=== PATIENT | female | born 1930 | race Caucasian/White ===

== ENCOUNTER 2017-02-10 07:13 | Inpatient (IN) | payer MEDICARE, OTHER ==
[2017-02-10] VITALS (9 sets, daily range): BP systolic 113–185; BP diastolic 39–83
[~2017-02-10] VITALS: Ht 152.4 cm; Wt 80.0 kg
[~2017-02-10 07:13] MED LIST: ACETAMIN325 MG PO; ADLT ASA LOW81 MG PO; AMLODIPINE5 MG PO; APRESOLINE25 MG/TAB PO; ATORVASTATIN CA40 MG PO; AZITHROMYCIN500 MG OR; BILBERRY1000 MG PO; CADUET5 MG/40 MG OR; CALCIUM 600+D31 TAB PO; CEPACOL SORE TH1 LO1 MT; CEPHALEXIN500 MG OR; CLONIDINE0.1 MG PO; COLACE100 MG PO; DARVOCET-N 100100 MG OR; DETROL LA4 MG OR; DETROL LA4 MG PO; DEXILANT60 MG PO; DOLACET1 CAP PO; GABAPENTIN300 MG PO; GINKGO BILOB120 M1 PO; GLUCOS/CHOND1 TA1 PO; GLUCOVANCE5 MG/500 M OR; GLYB/METFOR1 PO; HYDRALAZINE25 MG PO; LANTUS SC; LANTUS100 MG/ML SC; LASIX 20 MG TAB20 MG PO; LEVOTHYROXIN100 MCG PO; LIPITOR40 MG PO; LOPRESSOR 550 MG/TAB PO; LORTAB 5 OR; METO100T50 PO; METOPROL TAR50 MG OR; MILK OF MAG30 ML/UDC PO; MONOPRIL40 MG PO; MULTI 501 PO; NEURONTIN100 MG OR; NEURONTIN100 MG PO; NEURONTIN300 MG PO; NEXIUM40 M1 PO; NIASPAN1000 ER OR; NIFEDIPINE60 MG PO; NITROSTAT0.4 MG PO; NORCO1 TA1 PO; NORVASC PO; OMEGA-3 FIS1 PO; OMEPRAZOLE20 MG OR; PLAVIX75 MG PO; PREDNISONE20 MG PO; ROSE PO; SYNTHROID112 MCG PO; SYNTHROID75 MCG OR; TOPROL XL100 MG PO; TORADOL OR; TRAVATAN Z0.004 % OU; TRIAM/HCTZ1 CAP OR; TUBERSOL5 MG/0.1 M ID; VANTIN100 MG PO; VICKS VAPORUB EX; VITAMIN B-COMPLEX PO; VITAMIN C PO; VITAMIN D35000 UNIT PO; ZITHROMAX250 MG PO; [UNRECOGNIZED DRUG - OTHER] OU
[2017-02-10] MEDS ORDERED: DYNACIN100 MG PO (07:38)
[2017-02-10] MEDS ORDERED: OXYBUTYNIN5 M1 PO (07:41)
[2017-02-10] MEDS ORDERED: VITAMIN D50000 UN1 PO (07:44)
[2017-02-10] MEDS ORDERED: DEXILANT60 MG PO (07:52)
[2017-02-10] MEDS ORDERED: LANTUS100 MG/ML SC (07:57)
[2017-02-10] MEDS ORDERED: LISINOPRIL20 MG PO (07:58)
[2017-02-10 08:29] LABS: HEMATOCRIT 25.9 % (37.0-47.0); HEMOGLOBIN 7.9 g/dl (12.0-16.0); IMMATURE GRANULOCYTES 1.6 % (0.0-1.0); MEAN CELL VOLUME 97.7 fL CALC (80.0-100.0); MEAN CORPUSCULAR HGB 29.8 pG CALC (26.0-32.0); MEAN CORPUSCULAR HGB CONC 30.5 g/L CALC (32.0-36.0); NEUT# 5.76 thou/uL (2.00-7.15); RED BLOOD COUNT 2.65 mill/uL (4.20-5.60); RED CELL DISTRI WIDTH 14.4 % (11.5-15.5)
[2017-02-10 08:39] LABS: URINE BILIRUBIN - DIPSTICK NEGATIVE (NEGATIVE); URINE BLOOD DIPSTICK TRACE-INTACT (NEGATIVE); URINE COLOR YELLOW; URINE GLUCOSE - DIPSTICK 250 mg/dL (NEGATIVE); URINE KETONE NEGATIVE (NEGATIVE); URINE LEUK ESTERASE TRACE (Negative); URINE NITRITE - DIPSTICK POSITIVE (Negative); URINE PROTEIN - DIPSTICK >=300 mg/dL (NEG-TRACE); URINE UROBILINOGEN - DIPSTICK 0.2 E.U./dL (0.2)
[2017-02-10 08:43] LABS: URINE BACTERIA MANY hpf; URINE CLARITY CLOUDY; URINE EPITHELIAL CELLS MANY EPI/hpf (0-FEW); URINE RBC 0-2 RBC/hpf (0-5); URINE WBC 20-50 WBC/hpf (0-5)
[2017-02-10 08:45] LABS: ALBUMIN 2.9 g/dL (3.2-5.0); BILIRUBIN, TOTAL 0.3 mg/dL (0.0-1.4); CALCIUM 8.2 mg/dL (8.4-10.2); CREATININE 2.7 mg/dL (0.5-1.0); POTASSIUM 4.1 mmol/l (3.5-5.1); TOTAL PROTEIN 6.4 g/dL (6.3-8.2)
[2017-02-11] VITALS (17 sets, daily range): BP systolic 98–191; BP diastolic 48–94
[2017-02-11 05:40] LABS: HEMATOCRIT 20.4 % (37.0-47.0); IMMATURE GRANULOCYTES 1.6 % (0.0-1.0); MEAN CELL VOLUME 97.6 fL CALC (80.0-100.0); MEAN CORPUSCULAR HGB 29.2 pG CALC (26.0-32.0); MEAN CORPUSCULAR HGB CONC 29.9 g/L CALC (32.0-36.0); NEUT# 2.9 thou/uL (2.00-7.15); RED BLOOD COUNT 2.09 mill/uL (4.20-5.60); RED CELL DISTRI WIDTH 14.4 % (11.5-15.5)
[2017-02-11 05:45] LABS: HEMOGLOBIN 6.1 g/dl (12.0-16.0)
[2017-02-11 06:05] LABS: ALBUMIN 2.1 g/dL (3.2-5.0); CREATININE 2.6 mg/dL (0.5-1.0); POTASSIUM 3.5 mmol/l (3.5-5.1)
[2017-02-11 14:05] LABS: HEMATOCRIT 33.6 % (37.0-47.0); HEMOGLOBIN 10.8 g/dl (12.0-16.0)
[2017-02-12] VITALS (7 sets, daily range): BP systolic 152–187; BP diastolic 57–85
[2017-02-12 04:41] LABS: HEMATOCRIT 30.8 % (37.0-47.0); HEMOGLOBIN 9.8 g/dl (12.0-16.0); MEAN CELL VOLUME 92.8 fL CALC (80.0-100.0); MEAN CORPUSCULAR HGB 29.5 pG CALC (26.0-32.0); MEAN CORPUSCULAR HGB CONC 31.8 g/L CALC (32.0-36.0); NEUT# 4.38 thou/uL (2.00-7.15); RED BLOOD COUNT 3.32 mill/uL (4.20-5.60); RED CELL DISTRI WIDTH 15.2 % (11.5-15.5)
[2017-02-12 05:00] LABS: ALBUMIN 2.3 g/dL (3.2-5.0); BUN 50 mg/dL (8-23); CALCIUM 8.5 mg/dL (8.4-10.2); CARBON DIOXIDE 24 mmol/l (22-30); CHLORIDE 106 mmol/l (95-108); CREATININE 2.5 mg/dL (0.5-1.0); GFR 18 ML/MIN (>=60 (CALC)); GFR FOR AFR.AMER. 22 ML/MIN (>=60 (CALC)); GLUCOSE 155 mg/dL (82-115); POTASSIUM 3.9 mmol/l (3.5-5.1); SODIUM 139 mmol/l (137-146)
[2017-02-12] MEDS ORDERED: VANTIN100 MG PO (13:25)
== END 2017-02-12 18:50 | DRG 291 ==
LOC: ENPENDDIS → ED 07:13 → ED-I 09:25 → ED 09:38 → ICU 09:39
PROVIDERS: Emergency Medicine; Internal Medicine Nephrology; ADMIT Internal Medicine; ATTEND Internal Medicine
PROC: 5A09357 Assistance with Respiratory Ventilation, Less than 24 Consecutive Hours, Continuous Positive Airway Pressure (ICD-10-PCS; principal; 2017-02-10)
PROC: 30233N1 Transfusion of Nonautologous Red Blood Cells into Peripheral Vein, Percutaneous Approach (ICD-10-PCS; 2017-02-11)
PROC: 30233N1 Transfusion of Nonautologous Red Blood Cells into Peripheral Vein, Percutaneous Approach (ICD-10-PCS; 2017-02-11)
DX: I13.0 Hypertensive heart and chronic kidney disease with heart failure and stage 1 through stage 4 chronic kidney disease, or unspecified chronic kidney disease (principal); I50.31 Acute diastolic (congestive) heart failure; J96.21 Acute and chronic respiratory failure with hypoxia; E44.0 Moderate protein-calorie malnutrition; N18.4 Chronic kidney disease, stage 4 (severe); N17.9 Acute kidney failure, unspecified; N39.0 Urinary tract infection, site not specified; E11.22 Type 2 diabetes mellitus with diabetic chronic kidney disease; E11.42 Type 2 diabetes mellitus with diabetic polyneuropathy; I25.10 Atherosclerotic heart disease of native coronary artery without angina pectoris; M19.90 Unspecified osteoarthritis, unspecified site; E78.5 Hyperlipidemia, unspecified; E03.9 Hypothyroidism, unspecified; D63.1 Anemia in chronic kidney disease; D50.9 Iron deficiency anemia, unspecified; I25.2 Old myocardial infarction; Z95.5 Presence of coronary angioplasty implant and graft; Z86.74 Personal history of sudden cardiac arrest; Z66 Do not resuscitate
CPT/HCPCS: J0885; J1650; P9016; S0164

== ENCOUNTER 2017-04-20 10:26 | Inpatient (IN) | payer MEDICARE ==
[~2017-04-20] VITALS: Ht 152.4 cm; Wt 80.0 kg
[2017-04-20] VITALS (17 sets, daily range): BP systolic 98–206; BP diastolic 43–82
[~2017-04-20 10:26] MED LIST changes: -CEPACOL SORE TH1 LO1 MT; +CEPACOL SORE TH1 LO1 PO; +DYNACIN100 MG PO; +LANTUS SOL100 UNIT/M SC; +LISINOPRIL20 MG PO; +OXYBUTYNIN5 M1 PO; -VICKS VAPORUB EX; +VICKS VAPORUB TOP; +VITAMIN D50000 UNIT PO
[2017-04-20] MEDS ORDERED: GERI HYDROLA TOP (10:52)
[2017-04-20] MEDS ORDERED: KETOCONAZOLE2 % TOP (10:55)
[2017-04-20] MEDS ORDERED: LEVAQUIN750 M1 PO (10:57)
[2017-04-20] MEDS ORDERED: CLARITIN10 M2 PO (10:58)
[2017-04-20] MEDS ORDERED: MULTI VITAMIN A1 TAB PO (11:00)
[2017-04-20] MEDS ORDERED: NIFEDIPINE ER90 M1 PO (11:01)
[2017-04-20 11:02] LABS: HEMATOCRIT 27.7 % (37.0-47.0); HEMOGLOBIN 8.1 g/dl (12.0-16.0); IMMATURE GRANULOCYTES 4.6 % (0.0-1.0); MEAN CELL VOLUME 95.2 fL CALC (80.0-100.0); MEAN CORPUSCULAR HGB 27.8 pG CALC (26.0-32.0); MEAN CORPUSCULAR HGB CONC 29.2 g/L CALC (32.0-36.0); NEUT# 5.05 thou/uL (2.00-7.15); RED BLOOD COUNT 2.91 mill/uL (4.20-5.60)
[2017-04-20] MEDS ORDERED: OXYBUTYNIN CHLO10 MG PO (11:03)
[2017-04-20] MEDS ORDERED: PHOSLO667 M1 PO (11:04)
[2017-04-20 11:12] LABS: PROTHROMBIN TIME 10.7 SECONDS (9.0-12.5)
[2017-04-20] MEDS ORDERED: PROCRIT 1010000 U/ML IJ (11:13)
[2017-04-20 11:16] LABS: ALBUMIN 3.3 g/dL (3.2-5.0); ALKALINE PHOSPHATASE 62 u/l (38-126); AMYLASE 43 u/l (30-110); ANION GAP 21 (6-22 (CALC)); BILIRUBIN, TOTAL 0.3 mg/dL (0.0-1.4); CALCIUM 8.6 mg/dL (8.4-10.2); CARBON DIOXIDE 18 mmol/l (22-30); CHLORIDE 109 mmol/l (95-108); CREATININE 4.5 mg/dL (0.5-1.0); GFR 9 ML/MIN (>=60 (CALC)); GFR FOR AFR.AMER. 11 ML/MIN (>=60 (CALC)); GLUCOSE 157 mg/dL (82-115); LIPASE 46 u/l (23-300); SGOT/AST 32 u/l (9-36); SGPT/ALT 22 u/l (11-66); SODIUM 143 mmol/l (137-146); TOTAL PROTEIN 6.8 g/dL (6.3-8.2)
[2017-04-20] MEDS ORDERED: DUONEB IN (11:16)
[2017-04-20] MEDS ORDERED: ENSURE PO (11:18)
[2017-04-20 11:25] LABS: BUN 154 mg/dL (8-23); BUN/CREATININE RATIO 34 (12-20 (CALC))
[2017-04-20 12:50] LABS: URINE BILIRUBIN - DIPSTICK NEGATIVE (NEGATIVE); URINE BLOOD DIPSTICK NEGATIVE (NEGATIVE); URINE CLARITY CLEAR; URINE COLOR YELLOW; URINE GLUCOSE - DIPSTICK NEGATIVE (NEGATIVE); URINE KETONE NEGATIVE (NEGATIVE); URINE LEUK ESTERASE TRACE (NEGATIVE); URINE NITRITE - DIPSTICK NEGATIVE (Negative); URINE PROTEIN - DIPSTICK >=300 mg/dL (NEG-TRACE); URINE SPECIFIC GRAVITY 1.025; URINE UROBILINOGEN - DIPSTICK 0.2 E.U./dL (0.2)
[2017-04-20 13:05] LABS: MYOGLOBIN 128 ng/mL (0 - 62)
[2017-04-20 13:17] LABS: URINE BACTERIA RARE hpf; URINE SQUAMOUS EPITHELIAL CELL FEW EPI/hpf (0-FEW)
[2017-04-21] VITALS (13 sets, daily range): BP systolic 94–135; BP diastolic 40–80
[2017-04-21 05:06] LABS: HEMATOCRIT 27.7 % (37.0-47.0); HEMOGLOBIN 8.2 g/dl (12.0-16.0); IMMATURE GRANULOCYTES 3.3 % (0.0-1.0); MEAN CELL VOLUME 96.5 fL CALC (80.0-100.0); MEAN CORPUSCULAR HGB 28.6 pG CALC (26.0-32.0); MEAN CORPUSCULAR HGB CONC 29.6 g/L CALC (32.0-36.0); NEUT# 6.58 thou/uL (2.00-7.15); RED BLOOD COUNT 2.87 mill/uL (4.20-5.60); RED CELL DISTRI WIDTH 16.2 % (11.5-15.5)
[2017-04-21 05:11] LABS: ALBUMIN 2.8 g/dL (3.2-5.0); BILIRUBIN, TOTAL 0.2 mg/dL (0.0-1.4); CALCIUM 8.2 mg/dL (8.4-10.2); CREATININE 4.2 mg/dL (0.5-1.0); TOTAL PROTEIN 5.9 g/dL (6.3-8.2)
[2017-04-21 05:27] LABS: POTASSIUM 5.3 mmol/l (3.5-5.1)
[2017-04-22] VITALS (9 sets, daily range): BP systolic 83–113; BP diastolic 42–66
[2017-04-22 04:43] LABS: CALCIUM 7.6 mg/dL (8.4-10.2)
[2017-04-22 05:17] LABS: HEMOGLOBIN 7.1 g/dl (12.0-16.0); IMMATURE GRANULOCYTES 3.8 % (0.0-1.0); MEAN CELL VOLUME 95.6 fL CALC (80.0-100.0); MEAN CORPUSCULAR HGB 28.3 pG CALC (26.0-32.0); MEAN CORPUSCULAR HGB CONC 29.6 g/L CALC (32.0-36.0); RED BLOOD COUNT 2.51 mill/uL (4.20-5.60); RED CELL DISTRI WIDTH 16.3 % (11.5-15.5)
[2017-04-22 05:46] LABS: POTASSIUM 5.5 mmol/l (3.5-5.1)
== END 2017-04-22 14:34 | disposition hospice, inpatient (51) | DRG 291 ==
LOC: ED 10:26 → ED-I 11:30 → ED 11:30 → ED-I 11:55 → ED 12:32 → ICU 12:33
PROVIDERS: Emergency Medicine; ADMIT Internal Medicine; ATTEND Internal Medicine
PROC: 0T9B70Z Drainage of Bladder with Drainage Device, Via Natural or Artificial Opening (ICD-10-PCS; 2017-04-20)
PROC: 5A0935Z Assistance with Respiratory Ventilation, Less than 24 Consecutive Hours (ICD-10-PCS; principal; 2017-04-21)
DX: I13.0 Hypertensive heart and chronic kidney disease with heart failure and stage 1 through stage 4 chronic kidney disease, or unspecified chronic kidney disease (principal); J18.9 Pneumonia, unspecified organism; J96.21 Acute and chronic respiratory failure with hypoxia; N18.4 Chronic kidney disease, stage 4 (severe); N17.9 Acute kidney failure, unspecified; E87.2 Acidosis; E86.0 Dehydration; E11.22 Type 2 diabetes mellitus with diabetic chronic kidney disease; E11.40 Type 2 diabetes mellitus with diabetic neuropathy, unspecified; D63.1 Anemia in chronic kidney disease; I50.33 Acute on chronic diastolic (congestive) heart failure; I25.10 Atherosclerotic heart disease of native coronary artery without angina pectoris; E03.9 Hypothyroidism, unspecified; M19.90 Unspecified osteoarthritis, unspecified site; E78.5 Hyperlipidemia, unspecified; Y95 Nosocomial condition; Z95.5 Presence of coronary angioplasty implant and graft; Z51.5 Encounter for palliative care; Z66 Do not resuscitate
CPT/HCPCS: J2060

== ENCOUNTER 2017-04-22 14:35 | Inpatient (IN) | payer OTHER ==
[2017-04-22 14:00] VITALS: BP 70/38
[~2017-04-22 14:35] MED LIST changes: +CLARITIN10 M2 PO; +DUONEB IN; +ENSURE PO; +GERI HYDROLA TOP; +KETOCONAZOLE2 % TOP; +LEVAQUIN750 M1 PO; +MULTI VITAMIN A1 TAB PO; +NIFEDIPINE ER90 M1 PO; +OXYBUTYNIN CHLO10 MG PO; +PHOSLO667 M1 PO; +PROCRIT 1010000 U/ML IJ
[2017-04-22 16:00] VITALS: BP 68/34
== END 2017-04-22 17:58 | disposition expired | DRG 291 ==
LOC: ICU 14:35
PROVIDERS: ADMIT Internal Medicine; ATTEND Internal Medicine
DX: I13.0 Hypertensive heart and chronic kidney disease with heart failure and stage 1 through stage 4 chronic kidney disease, or unspecified chronic kidney disease (principal); I50.33 Acute on chronic diastolic (congestive) heart failure; J96.21 Acute and chronic respiratory failure with hypoxia; J18.9 Pneumonia, unspecified organism; N18.4 Chronic kidney disease, stage 4 (severe); N17.9 Acute kidney failure, unspecified; E87.2 Acidosis; E86.0 Dehydration; E44.0 Moderate protein-calorie malnutrition; E11.22 Type 2 diabetes mellitus with diabetic chronic kidney disease; D63.1 Anemia in chronic kidney disease; I25.10 Atherosclerotic heart disease of native coronary artery without angina pectoris; E03.9 Hypothyroidism, unspecified; M19.90 Unspecified osteoarthritis, unspecified site; E78.5 Hyperlipidemia, unspecified; Z66 Do not resuscitate; Z51.5 Encounter for palliative care; Z68.34 Body mass index [BMI] 34.0-34.9, adult; Z95.5 Presence of coronary angioplasty implant and graft; Y95 Nosocomial condition